=== PATIENT | male | born 1990 | race Caucasian/White ===

== ENCOUNTER 2021-03-26 17:36 | Emergency (ER) | payer OTHER, SELFPAY ==
[2021-03-26 17:46] VITALS: BP 120/81; PULSE 95; RESP 14; TEMP 37.1; O2SAT 99
--- NOTE | 2021-03-26 17:55 | ED.GENADULT ---
HPI - General Adult General Chief complaint: Abdominal Pain Stated complaint: Abdominal Pain Time Seen by Provider: 03/26/21 17:55 Source: patient Mode of arrival: ambulatory Limitations: no limitations History of Present Illness HPI narrative: 30-year-old male patient presents to the [facility] with complaints of lower right abdominal pain x2 days. Patient states last bowel movement was this morning and was normal. Patient states he still does have his gallbladder and his appendix. Denies fevers, nausea vomiting or diarrhea. Related Data Home Medications Medication Instructions Recorded Confirmed No Home Medications 03/26/21 03/26/21 Allergies Allergy/AdvReac Type Severity Reaction Status Date / Time No Known Allergies Allergy Verified 03/26/21 17:57 Review of Systems Review of Systems: CONSTITUTIONAL: Denies fever, chills, or sweats. EYES: Denies visual changes, redness, or discharge. ENT: Denies rhinorrhea, congestion, sore throat, or otalgia. CARDIOVASCULAR: Denies chest pain, palpitations, or edema. RESPIRATORY: Denies cough or dyspnea. GASTROINTESTINAL: Positive right lower abdominal pain, denies nausea, vomiting, or diarrhea. GENITOURINARY: Denies dysuria or hematuria. SKIN: Denies rash or itching. MUSCULOSKELETAL: Denies back pain, joint pain, or myalgia. NEUROLOGIC: Denies headache, numbness, or weakness. PSYCHIATRIC: Denies anxiety or depression. [facility] Past Medical History Medical History (Updated 03/26/21 @ 18:05 by LITO Sampson) No significant past medical history Comments At the time of my signature I agree with nursing past medical history, surgical, social, and family history. There is no relevant family history pertinent to the presenting complaint. Exam Narrative: GENERAL: Well-appearing, well-nourished, and in no acute distress. HEAD: Normocephalic, atraumatic. EYES: PERRLA and EOMI. ENT: Nares clear, no rhinorrhea or epistaxis. Mucous membranes moist. NECK: Supple. No lymphadenopathy CHEST: Clear to auscultation. No respiratory distress. HEART: Regular rate and rhythm. No murmur heard. Normal peripheral pulses. ABDOMEN: Soft, flat, nondistended. guarding, positive rebound tenderness, or rigid. No pulsatilla masses. Bowel sounds present in all four quadrants. No organomegaly. Negative Cash?s sign. No periumbicial tenderness. No Supra public tenderness or distension. Good femoral pulses bilaterally. No hernia noted. No scars or surface trauma. EXTREMITIES: Normal range of motion. No edema. SKIN: Warm, dry, no rash. NEURO: No focal deficits. Alert and oriented x3. Course Vital Signs Vital signs: Vital signs reviewed Transfer Transfered to: [facility] Transportation: Other (Private vehicle with friend) Transfer rationale: Right lower quadrant abdominal pain with rebound tenderness Accepting physician: Dr. Alvarenga Transfer comments: Called and spoke with SOCORRO Mo at [facility]. Gave her report on patient that we are sending over for evaluation of possible appendicitis with right lower quadrant pain x2 days with positive rebound tenderness. Medical Decision Making Differential Diagnosis Differential Diagnosis: Differential diagnosis: Appendicitis, ovarian torsion, gallbladder disease, ovarian torsion, pancreatitis, lower lobe pneumonia,AAA, AMI or ACS, DKA, diverticulitis. Plan of care for patient is to transfer him to [facility] ER for further evaluation of possible appendicitis. Critical Care Time Critical Care Time Critical Care Time: No Discharge Plan Discharge Clinical Impression: Abdominal pain, acute, right lower quadrant Patient Disposition: Acute Care Hospital Condition: Stable Instructions: Antibiotic Form Prescriptions: No Action No Home Medications RF: 0 Follow-up/Referrals: PHYSICIAN,[employer] DEC[employer]PERATOR [Primary Care Provider] - Time of Disposition: 18:04
== END 2021-03-26 18:12 | disposition short-term general hospital (02) ==
PROVIDERS: Emergency Provider Nurse Practitioner Family
DX: R10.31 Right lower quadrant pain (principal)
CPT/HCPCS: 99212; G0463